=== PATIENT | female | born 2000 | race African-American/Black ===

== ENCOUNTER 2018-01-07 19:08 | Emergency (ER) | payer SELFPAY ==
[~2018-01-07] VITALS: Ht 154.9 cm; Wt 60.0 kg
[2018-01-07 19:32] VITALS: BP 127/80; PULSE 81; RESP 16; TEMP 99.2; O2SAT 99
[2018-01-08] MEDS ORDERED: PHEN0.4T PO (12:49)
[2018-01-08] MEDS ORDERED: BACT800T5 PO (12:49)
== END 2018-01-07 20:28 | disposition left against medical advice (07) ==
LOC: NED 19:08
DX: Z03.89 Encounter for observation for other suspected diseases and conditions ruled out (principal)
CPT/HCPCS: 99281

== ENCOUNTER 2018-01-08 11:23 | Emergency (ER) | payer SELFPAY ==
[~2018-01-08] VITALS: Ht 157.5 cm; Wt 60.0 kg
[2018-01-08 11:39] VITALS: BP 130/67; PULSE 98; RESP 20; TEMP 98.8; O2SAT 99
[2018-01-08 12:22] LABS: AUTOMATED NEUTROPHIL # 5.5 TH/MM3 (1.8-7.7); BASOPHIL % 0.5 % (0.0-2.0); EOSINOPHIL % 0.2 % (0.0-4.0); HEMATOCRIT 36.6 % (35.0-46.0); LYMPH % 30.5 % (9.0-44.0); LYMPHOCYTE # 2.7 TH/MM3 (1.0-4.8); MEAN CELL VOLUME 75.2 FL (80.0-100.0); MEAN CORPUSCULAR HEMOGLOBIN 24.7 PG (27.0-34.0); MEAN CORPUSCULAR HGB CONC 32.8 % (32.0-36.0); MEAN PLATELET VOLUME 8.1 FL (7.0-11.0); MONO % 5.7 % (0.0-8.0); MONOCYTE # 0.5 TH/MM3 (0-0.9); NEUT % 63.1 % (16.0-70.0); PLATELET COUNT 382 TH/MM3 (150-450); RED BLOOD COUNT 4.86 MIL/MM3 (4.00-5.30); WHITE BLOOD COUNT 8.8 TH/MM3 (4.0-11.0)
[2018-01-08 12:28] LABS: BACTERIA, URINE MANY /hpf; BILIRUBIN, URINE NEG (NEG); BLOOD, URINE TRACE (NEG); GLUCOSE,URINE NEG (NEG); KETONE, URINE NEG (NEG); MUCUS URINE FEW /lpf (OCC); NITRITE,URINE POS (NEG); PH, URINE 5.5 (5.0-8.5); SQUAMOUS EPITHELIAL CELL URINE 20 /hpf (0-5); URINE COLOR YELLOW (YELLW/STRAW); URINE LEUKOCYTE ESTERASE LARGE (NEG); WHITE BLOOD CELL CLUMPS OCC
[2018-01-08 12:37] LABS: ALT (GPT) 28 U/L (9-42); AST (GOT) 20 U/L (16-38); BICARBONATE 24.7 MEQ/L (21.0-32.0); BLOOD UREA NITROGEN 12 MG/DL (7-18); CALCIUM 8.6 MG/DL (8.5-10.1); CHLORIDE 106 MEQ/L (98-107); CREATININE 0.82 MG/DL (0.50-1.00); GLOMERULAR FILTRATION RATE 109 ML/MIN (>89); GLUCOSE,RANDOM 83 MG/DL (74-106); SODIUM (NA) 140 MEQ/L (136-145)
[2018-01-08 12:40] LABS: ALKALINE PHOSPHATASE 70 U/L (45-117); TOTAL BILIRUBIN ADULT 0.5 MG/DL (0.2-1.0)
[2018-01-08] MEDS ORDERED: PHEN0.4T PO (12:49)
[2018-01-08] MEDS ORDERED: BACT800T5 PO (12:49)
--- NOTE | 2018-01-08 12:53 | PD ---
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 She presents for evaluation for the past 2-3 days she has had suprapubic pressure, increased urinary frequency and hesitancy. For the past 2 days she has had vaginal bleeding and white vaginal discharge. She reports that her last menstrual period was at the beginning of December. She denies nausea or vomiting, fevers or chills, flank pain. She reports that she has not been sexually active in 2-3 months. She has no other complaints at this time. [facility] Past Medical History ?: Not LMP: 12/16/17 Social History Alcohol Use: No Tobacco Use: No Allergies-Medications (Allergen,Severity, Reaction): Coded Allergies: clindamycin (Verified Allergy, Unknown, 01/07/18) Review of Systems Except as stated in HPI: all other systems reviewed are Neg Physical Exam Narrative GENERAL: Well-developed well-nourished female no acute distress SKIN: Warm and dry. HEAD: Atraumatic. Normocephalic. EYES: Pupils equal and round. No scleral icterus. No injection or drainage. ENT: No nasal bleeding or discharge. Mucous membranes pink and moist. NECK: Trachea midline. No JVD. CARDIOVASCULAR: Regular rate and rhythm. No murmur appreciated. RESPIRATORY: No accessory muscle use. Clear to auscultation. Breath sounds equal bilaterally. GASTROINTESTINAL: Abdomen soft, mild suprapubic tenderness without guarding. No CVA tenderness. Pelvic examination was declined. MUSCULOSKELETAL: No obvious deformities. No clubbing. No cyanosis. No edema. NEUROLOGICAL: Awake and alert. No obvious cranial nerve deficits. Motor grossly within normal limits. Normal speech. Data Data Last Documented VS Vital Signs Date Time Temp Pulse Resp B/P (MAP) Pulse Ox O2 Delivery O2 Flow Rate FiO2 01/08/18 11:39 98.8 98 20 130/67 (88) 99 Orders Orders Complete Blood Count With Diff (01/08/18 11:43) Ed Urine Pregnancytest Poc (01/08/18 11:43) Comprehensive Metabolic Panel (01/08/18 11:43) Urinalysis - C+S If Indicated (01/08/18 11:43) Urine Culture (01/08/18 12:01) Labs Laboratory Tests Test 01/08/18 12:01 White Blood Count 8.8 TH/MM3 Red Blood Count 4.86 MIL/MM3 Hemoglobin 12.0 GM/DL Hematocrit 36.6 % Mean Corpuscular Volume 75.2 FL Mean Corpuscular Hemoglobin 24.7 PG Mean Corpuscular Hemoglobin Concent 32.8 % Red Cell Distribution Width 14.0 % Platelet Count 382 TH/MM3 Mean Platelet Volume 8.1 FL Neutrophils (%) (Auto) 63.1 % Lymphocytes (%) (Auto) 30.5 % Monocytes (%) (Auto) 5.7 % Eosinophils (%) (Auto) 0.2 % Basophils (%) (Auto) 0.5 % Neutrophils # (Auto) 5.5 TH/MM3 Lymphocytes # (Auto) 2.7 TH/MM3 Monocytes # (Auto) 0.5 TH/MM3 Eosinophils # (Auto) 0.0 TH/MM3 Basophils # (Auto) 0.0 TH/MM3 CBC Comment DIFF FINAL Differential Comment Urine Color YELLOW Urine Turbidity HAZY Urine pH 5.5 Urine Specific [place] 1.017 Urine Protein TRACE mg/dL Urine Glucose (UA) NEG mg/dL Urine Ketones NEG mg/dL Urine Occult Blood TRACE Urine Nitrite POS Urine Bilirubin NEG Urine Urobilinogen LESS THAN 2.0 MG/DL Urine Leukocyte Esterase LARGE Urine RBC 18 /hpf Urine WBC 60 /hpf Urine WBC Clumps OCC Urine Squamous Epithelial Cells 20 /hpf Urine Bacteria MANY /hpf Urine Mucus FEW /lpf Microscopic Urinalysis Comment CULTURE INDICATED Blood Urea Nitrogen 12 MG/DL Creatinine 0.82 MG/DL Random Glucose 83 MG/DL Total Protein 8.0 GM/DL Albumin 4.0 GM/DL Calcium Level 8.6 MG/DL Alkaline Phosphatase 70 U/L Aspartate Amino Transf (AST/SGOT) 20 U/L Alanine Aminotransferase (ALT/SGPT) 28 U/L Total Bilirubin 0.5 MG/DL Sodium Level 140 MEQ/L Potassium Level 3.8 MEQ/L Chloride Level 106 MEQ/L Carbon Dioxide Level 24.7 MEQ/L Anion Gap 9 MEQ/L Estimat Glomerular Filtration Rate 109 ML/MIN [facility] Medical Decision Making Medical Screen Exam Complete: Yes Emergency Medical Condition: Yes Medical Record Reviewed: Yes Differential Diagnosis Cystitis, cervicitis, pelvic inflammatory disease, vaginosis, intrauterine , ectopic , dysmenorrhea Narrative Course Lab work was obtained in triage. CBC is unremarkable. CMP is unremarkable. Urine test is negative. Urinalysis reveals positive nitrites, trace blood, large leukocytes consistent with UTI. She does report that she has been having some vaginal discharge and bleeding as well however she refuses pelvic examination at this time. She understands that this cannot be further evaluated without the pelvic examination and she is agreeable outpatient follow- up. She understands that she can return at any time if she changes her mind. She will be discharged with Bactrim and Pyridium. Diagnosis Primary Impression: UTI (urinary tract infection) Additional Impression: Vaginal bleeding Referrals: [facility] Additional Instructions: Medication as prescribed. Stay well hydrated and well-nourished. Follow-up with a can tester in outpatient for further evaluation of your vaginal bleeding or discharge. Return at any time for any new or worsening symptoms. Med/Other Pt SpecificInfo: Prescription(s) given Scripts Phenazopyridine (Pyridium) 100 Mg Tab 100 MG PO Q8HR for Dysuria for 2 Days, TAB 0 Refills Prov: Sil Carbajal MD 01/08/18 Sulfamethoxazole-Trimethoprim (Bactrim DS) 800-160 Mg Tab 1 TAB PO BID for Infection, #14 TAB 0 Refills Prov: Sil Carbajal MD 01/08/18 Disposition: 01 DISCHARGE HOME Condition: Stable Raffy Dobbs January 08, 2018 12:52
== END 2018-01-08 13:15 | disposition home or self-care (01) ==
LOC: NEPA 11:23
DX: N39.0 Urinary tract infection, site not specified (principal); N93.9 Abnormal uterine and vaginal bleeding, unspecified; D57.3 Sickle-cell trait; B96.20 Unspecified Escherichia coli [E. coli] as the cause of diseases classified elsewhere
CPT/HCPCS: 80053; 81001; 84703; 85025; 87077; 87086; 87186; 99283